=== PATIENT | male | born 1935 | race Caucasian/White ===

== ENCOUNTER 2016-09-23 11:01 | Emergency (ER) | payer OTHER ==
[2016-09-23 11:10] VITALS: RESP 16
--- NOTE | 2016-09-23 11:15 | EDPHY ---
H & P Stated Complaint: Woke up this morning with numbness L face;stopped pravastatin on own ~1mo Time Seen by Provider: 09/23/16 11:15 HPI/ROS: CHIEF COMPLAINT: Left facial weakness and numbness HISTORY OF PRESENT ILLNESS: The patient presents to the ED after he woke this morning with left facial numbness and subjective weakness. The patient has a history of stroke in 2009. He has been maintained on a daily baby aspirin. The patient denies headache, recent fall, neck pain or cervical manipulation. The patient denies any peripheral complaints of numbness or weakness. REVIEW OF SYSTEMS: A comprehensive 10 point review of systems is otherwise negative aside from elements mentioned in the history of present illness. Source: Patient - Personal History Current Tetanus Diphtheria and Acellular Pertussis (TDAP): Yes - Medical/Surgical History Other PMH: stroke 2009 - Social History Smoking Status: Former smoker - Physical Exam Exam: General Appearance: Alert, no distress Eyes: Pupils equal and round no pallor or injection ENT, Mouth: Mucous membranes moist Respiratory: There are no retractions, lungs are clear to auscultation Cardiovascular: Regular rate and rhythm Gastrointestinal: Abdomen is soft and nontender, no masses, bowel sounds normal Neurological: Alert and oriented x4, 5/5 strength noted all 4 extremities, cranial nerves 2-12 intact aside from decreased sensation to light touch along the margin of the left mouth Skin: Warm and dry, no rashes Musculoskeletal: Neck is supple nontender Extremities: symmetrical, full range of motion Constitutional: Initial Vital Signs Temperature (C) 36.4 C 09/23/16 11:03 Heart Rate 65 09/23/16 11:03 Respiratory Rate 16 09/23/16 11:03 Blood Pressure 132/59 H 09/23/16 11:03 O2 Sat (%) 96 09/23/16 11:03 O2 Delivery Mode Room Air Allergies/Adverse Reactions: Sulfa (Sulfonamide Antibiotics) Allergy (Intermediate, Verified 09/23/16 11:04) swelling Home Medications: Medication Instructions Recorded Aspirin [Aspirin 81mg (*)] 81 mg PO DAILY 09/23/16 Medical Decision Making - Diagnostics Imaging Results: Imaging Impressions Brain MRI 09/23/16 11:21 Impression: Underlying atrophy and white matter disease, 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 Results called to Dr. Armand Matthew at 12:40 p.m. ED Course/Re-evaluation: The patient presents to the ED with left facial paresthesias present when he woke up today. The patient presents to the ED with an NIH stroke scale of 1 based upon this finding. The patient has no other deficits noted on exam. The patient is not a candidate for tPA based upon the timing of his symptoms and current NIH stroke scale. An MRI of the brain without contrast has been ordered at 11:20 a.m. MRI of the brain demonstrates no evidence of an acute stroke. As I re-evaluate the patient he continues to complain of a approximately 1 subcutaneously cm area of decreased sensation along his left lip. I appreciate no obvious weakness. At this point time I do feel the patient can safely be discharged home with instructions to return to the ED for any progressive neurologic symptoms or other concerns. I have told the patient that we have not fully exclude the possibility he may go on to develop a Barajas's palsy however I see no clear-cut indication of this based upon his current exam. Additionally the patient is currently maintained on aspirin. The patient is comfortable following up with his primary care provider. He will return to the ED for markedly worsening symptoms or other concerns. Differential Diagnosis: Differential diagnosis considered includes ischemic stroke, hemorrhagic stroke, [place] MATE mass, TIA, peripheral neuropathy Departure - Departure Disposition: Home, Routine, Self-Care Clinical Impression: Paresthesia Condition: Good Instructions: Paresthesia (ED) Additional Instructions: 1. Your MRI demonstrates no evidence of an acute stroke or other abnormality. 2. Please continue your daily aspirin. 3. Return to the ED for any new neurologic symptoms, difficulty with speech or walking or any additional concerns. 4. Please follow-up with your primary care provider as needed. Referrals: Scar Villeda MD [Primary Care Provider] - As per Instructions
[2016-09-23 14:15] VITALS: BP 126/66; PULSE 62; TEMP 98.4; O2SAT 97
== END 2016-09-23 14:15 | disposition home or self-care (01) ==
DX: R20.2 Paresthesia of skin (principal); Z87.891 Personal history of nicotine dependence

== ENCOUNTER → 2016-10-31 | Outpatient (CLI) | payer OTHER | LOC: BHFA 11:00 | PROVIDERS: ATTEND Internal Medicine Interventional Cardiology | DX: G45.9 Transient cerebral ischemic attack, unspecified (principal); R00.2 Palpitations ==

== ENCOUNTER → 2017-11-30 | Outpatient (CLI) | payer OTHER | LOC: BHFA 10:15 | PROVIDERS: ATTEND Nurse Practitioner Adult Health | DX: I63.9 Cerebral infarction, unspecified (principal); I49.9 Cardiac arrhythmia, unspecified; I47.1 Supraventricular tachycardia; E78.5 Hyperlipidemia, unspecified; G45.9 Transient cerebral ischemic attack, unspecified ==

== ENCOUNTER 2017-12-07 10:53 | Day surgery (SDC) | payer OTHER ==
[2017-12-07] MEDS ORDERED: LIDOCAINE 1% 300 MG/30 ML SDV SC ONE (11:00)
--- NOTE | 2017-12-07 11:46 | PDHPUP ---
History & Physical Update H&P update statement: This history and physical update is based on an assessment of the patient which was completed after admission or registration (within 24 hours), but prior to the surgery/procedure. H&P update: H&P reviewed & patient examined, no change in patient's condition since H&P completed
--- NOTE | 2017-12-08 09:03 | SUROPNOTE ---
[facility] Operative Report - Surgery LOOP RECORDER IMPLANT Device implanted: LINQ Date of implant: 12-07-17 Indication for implant: TIA Details of procedure: After consent was obtained, the patient was placed on the table in the usual sterile fashion. The patient was prepped and draped with exposure to the left sternal region. Lidocaine was used for local anesthetic. A small incision was made with a #11 blade. The provided blade was then used to facilitate appropriate width and breath. The rail delivery system was then inserted into the small incision. This rail system was then inverted to allow elevation for the device insertion. The device was implanted without difficulty. The rail delivery system was then removed. The pocket was inspected to ensure all of the device was securely inside the pocket. [place] were used to close the incision. SN: [id number] There were no complications appreciated in this procedure. The device was interrogated to ensure adequate wave forms noted. Outpatient follow up with cardiology was scheduled.
== END 2017-12-07 12:54 | disposition home or self-care (01) ==
LOC: FCATH 10:53
PROVIDERS: ATTEND Internal Medicine Cardiovascular Disease
PROC: 0JH602Z Insertion of Monitoring Device into Chest Subcutaneous Tissue and Fascia, Open Approach (ICD-10-PCS; principal; 2017-12-07)
DX: I47.1 Supraventricular tachycardia (principal); F41.9 Anxiety disorder, unspecified; N40.0 Benign prostatic hyperplasia without lower urinary tract symptoms; E78.5 Hyperlipidemia, unspecified; Z86.73 Personal history of transient ischemic attack (TIA), and cerebral infarction without residual deficits

== ENCOUNTER → 2017-12-31 | Outpatient (CLI) | payer OTHER | LOC: BHFA 10:45 | PROVIDERS: ATTEND Internal Medicine Interventional Cardiology | DX: R00.2 Palpitations (principal) ==